=== PATIENT | male | born 1955 | race Caucasian/White ===

== ENCOUNTER 2017-01-23 18:40 | Inpatient (IN) | payer OTHER, MEDICARE ==
[~2017-01-23 18:40] MED LIST: ACIDOPHILUS1 EACH PO; ADULT LOW DOSE81 M1 PO; ADVAIR 5001 DISK W/D IH; ADVAIR 50028 BLISTE1 PO; ALBUTEROL17 GM INH; ALTACE10 MG; ALTACE10 MG PO; AMLODIPINE BESY10 MG PO; ASPIR 8181 MG PO; ATIVAN2 MG; BAYER81 MG; BUPROBAN150 MG PO; BUPROPION XL150 M1 PO; CELEXA40 MG; CELEXA40 MG PO; CIALIS20 MG; CIPRO500 M2 PO; CLONAZEPAM1 MG; CPAP; CRESTOR40 MG; CRESTOR40 MG PO; CRESTOR40 MG/TAB PO; CULTURELLE1 EAC1 PO; DESYREL150 MG; DORYX100 MG PO; EFFIENT10 MG/TAB PO; FLONASE ALLERG9.9 ML; FUROSEMIDE20 MG PO; GEODON80 MG; GUAIFENESIN ER600 MG PO; H PO; HYDROCHLOROTH12.5 M1 PO; HYDROCODONE/APA1 TA; LASIX20 M1 PO; LEVAQUIN750 M1 PO; LEVAQUIN750 MG PO; LOPRESSOR50 M1 PO; LOPRESSOR50 MG; LYRICA100 MG PO; LYRICA200 M1 PO; LYRICA50 MG; METOPROLOL TART25 MG PO; METOPROLOL TART50 MG PO; NEURONTIN600 MG; NITROGLYCERIN0.4 MG; NITROSTAT0.4 MG/TAB SL; NORCO 10-325 T1 EACH PO; NORCO 10/3251 TA1 PO; NORCO 5/325 TAB1 TAB PO; NORVASC10 M2 PO; NORVASC5 MG; NORVASC5 MG PO; OXYCODONE-APAP; PLAVIX75 MG; PREDNISONE10 M1 PO; PREDNISONE10 MG PO; PROAIR HFA8.5 GM IH; PROBIOTIC1 EAC6 PO; PYRIDIUM200 M2 PO; SPIRIVA18 MC1 IH; SPIRIVA18 MCG IH; TRAZODONE HCL150 MG PO; TRAZODONE HCL300 M1 PO; ZANTAC300 MG; ZITHROMAX250MG Z-PAK PO
[2017-01-23 21:12] LABS: EOS % 1.7 % (0-7); LYMPH % 50.6 % (20-45); LYMPH ABSOLUTE COUNT 0.9 tho/cmm (0.8-4.5); MCV (MEAN CELL VOLUME) 118.6 fl (82.0-96.0); MONO % 5.6 % (0-12); MONOCYTE ABSOLUTE COUNT 0.1 tho/cmm (0.0-1.2); NEUTROPHIL ABSOLUTE COUNT 0.8 tho/cmm (1.6-8.0); NEUTROPHIL-AUTOMATED 0.8 tho/cmm (1.6-8.0); NEUTROPHILS % 42.1 % (40-80); PLATELET COUNT 79 tho/cmm (150-450)
[2017-01-23 21:27] LABS: IRON 129 ug/dl (49-181); IRON BINDING CAPACITY 286 ug/dl (250-450)
[2017-01-23 21:30] LABS: ALB/GLOB RATIO 0.8 (0.8-2.0); ALBUMIN 3.4 g/dl (3.5-5.0); ALKALINE PHOSPHATASE 98 U/L (33-138); ALT/SGPT 22 U/L (12-78); ANION GAP 14 mmol/L (0-20); AST/SGOT 16 U/L (10-40); BILIRUBIN,TOTAL 0.4 mg/dl (0.0-1.5); BLOOD UREA NITROGEN 12 mg/dl (6-24); CALCIUM 8.7 mg/dl (8.5-10.5); CARBON DIOXIDE-VENOUS 24 mmol/L (22-32); CHLORIDE 109 mmol/l (96-110); GLUCOSE 124 mg/dL (70-110); MAGNESIUM 2.3 mg/dl (1.8-2.6); POTASSIUM 3.5 mmol/L (3.7-5.1); SODIUM 143 mmol/L (135-145); eGFR VALUE FOR BLACK 52 mL/Min
[2017-01-23 21:50] LABS: FERRITIN 478 ng/ml (22-388)
[2017-01-23 21:56] LABS: WHITE BLOOD COUNT 1.8 tho/cmm (4.0-10.0)
[2017-01-23 21:57] LABS: HCT-HEMATOCRIT 16.6 % (36.0-53.5); HGB-HEMOGLOBIN 5.6 gm/dl (13.5-17.0); MCHC MEAN CORPUSCULAR HGB CONC 33.7 % (32.0-36.0)
[2017-01-24 09:23] LABS: HGB-HEMOGLOBIN 7.5 gm/dl (13.5-17.0)
[2017-01-24 14:47] LABS: TSH-THYROID STIMULATING HORM. 2.18 uIU/ml (0.40-3.80)
[2017-01-25 14:57] LABS: HCT-HEMATOCRIT 20.1 % (36.0-53.5); HGB-HEMOGLOBIN 6.8 gm/dl (13.5-17.0); MCHC MEAN CORPUSCULAR HGB CONC 33.8 % (32.0-36.0); MCV (MEAN CELL VOLUME) 112.3 fl (82.0-96.0); MEAN PLATELET VOLUME 11.9 cmc (9.4-12.4); NEUTROPHIL-AUTOMATED 0.7 tho/cmm (1.6-8.0); PLATELET COUNT 73 tho/cmm (150-450); RED BLOOD COUNT 1.79 mil/cmm (4.40-5.70); RED CELL DISTRIBUTION WIDTH 20.6 % (12.4-16.4); WHITE BLOOD COUNT 2.3 tho/cmm (4.0-10.0)
[2017-01-25 15:09] LABS: ANION GAP 13 mmol/L (0-20); BLOOD UREA NITROGEN 15 mg/dl (6-24); CALCIUM 8.2 mg/dl (8.5-10.5); CARBON DIOXIDE-VENOUS 23 mmol/L (22-32); CHLORIDE 106 mmol/l (96-110); CREATININE 1.44 mg/dl (0.60-1.30); GLUCOSE 98 mg/dL (70-110); POTASSIUM 4.1 mmol/L (3.7-5.1); SODIUM 138 mmol/L (135-145); eGFR VALUE FOR BLACK 59 mL/Min
[2017-01-25 15:57] LABS: BAND % 1 % (0-20); EOSINOPHIL % 1 % (0-7); WBC MORPHOLOGY VARIANT LYMPHS
[2017-01-25 21:31] LABS: CREATININE 1.44 mg/dl (0.67-1.17)
[2017-01-26 05:08] LABS: EOS % 0.5 % (0-7); IMMATURE GRANULOCYTES ABSOLUTE 0.01 tho/cmm (0-0.03); IMMATURE GRANULOCYTES PERCENT 0.5 % (0-0.3); LYMPH % 45.7 % (20-45); LYMPH ABSOLUTE COUNT 0.9 tho/cmm (0.8-4.5); MEAN PLATELET VOLUME 12.1 cmc (9.4-12.4); MONOCYTE ABSOLUTE COUNT 0.1 tho/cmm (0.0-1.2); NEUTROPHILS % 49.3 % (40-80); PLATELET COUNT 68 tho/cmm (150-450); RED BLOOD COUNT 1.92 mil/cmm (4.40-5.70); RED CELL DISTRIBUTION WIDTH 23.6 % (12.4-16.4)
[2017-01-26 05:23] LABS: HCT-HEMATOCRIT 20.5 % (36.0-53.5); MCH (MEAN CORPUSCULAR HGB) 36.5 pg (28.0-32.0); MCHC MEAN CORPUSCULAR HGB CONC 34.1 % (32.0-36.0); MCV (MEAN CELL VOLUME) 106.8 fl (82.0-96.0)
[2017-01-26 05:29] LABS: ANION GAP 14 mmol/L (0-20); BLOOD UREA NITROGEN 13 mg/dl (6-24); CALCIUM 8.1 mg/dl (8.5-10.5); CARBON DIOXIDE-VENOUS 22 mmol/L (22-32); CHLORIDE 105 mmol/l (96-110); CREATININE 1.42 mg/dl (0.60-1.30); GLUCOSE 112 mg/dL (70-110); POTASSIUM 3.6 mmol/L (3.7-5.1); SODIUM 137 mmol/L (135-145); eGFR VALUE FOR BLACK 60 mL/Min
[2017-01-26 06:13] LABS: WBC MORPHOLOGY VARIANT LYMPHS
--- NOTE | 2017-01-26 10:50 | NUR ---
PT RETURNS TO ROOM FROM IR S/P BONE MARROW BX, COLONOSCOPY & EGD WITH ANESTHESIA. PT AWAKE, APPROPRIATE BUT SATS 75% ON RA. LUNG SOUNDS DIM T/O BUT THIS IS UNCHANGED FROM ASSESSMENT AT 0730. APPLIED O2 PER NC AT 4L AND ATTEMPTED JAW THRUST BUT NO CHANGE IN O2 SATS. DIABETES NURSE CALLED AT 1053. RT INITIATES CPAP WITH 10L O2 BLED INTO LINE AND SATS IMPROVE TO >90%. PT DOSES OFF BUT WAKES READILY TO VOICE. ABG'S DRAWN, CXR ORDERED. RESP TX PROVIDED AND PT SITS UP IN BED TO WATCH TV, REQUESTS CPAP BE REMOVED. PT PLACED ON O2 PER NC AT 6L AND SATS 100%. WILL MONITOR AND CONT TO WEAN O2 ABLE.
[2017-01-26 11:25] LABS: ABG CO2 ARTERIAL 22 mmol/L (21-27); ARTERIAL BLD GAS O2 SATURATION 94 % (95-98); ARTERIAL BLOOD GAS PCO2 31 mmHg (32-45); ARTERIAL PO2 68 mmHg (70-100); BICARBONATE 21 mmol/L (21-28); BLOOD GAS BASE EXCESS -2 mM/L (-/+3); PH 7.45 Units (7.35-7.45)
[2017-01-26 17:50] LABS: ABG CO2 ARTERIAL 23 mmol/L (21-27); ARTERIAL BLD GAS O2 SATURATION 85 % (95-98); ARTERIAL BLOOD GAS PCO2 28 mmHg (32-45); BICARBONATE 22 mmol/L (21-28); BLOOD GAS BASE EXCESS 0 mM/L (-/+3)
[2017-01-26 17:51] LABS: ARTERIAL PO2 55 mmHg (70-100)
[2017-01-26 17:57] LABS: EOS % 0.6 % (0-7); HGB-HEMOGLOBIN 6.8 gm/dl (13.5-17.0); IMMATURE GRANULOCYTES ABSOLUTE 0.01 tho/cmm (0-0.03); IMMATURE GRANULOCYTES PERCENT 0.6 % (0-0.3); LYMPH % 52.8 % (20-45); LYMPH ABSOLUTE COUNT 0.9 tho/cmm (0.8-4.5); MCH (MEAN CORPUSCULAR HGB) 36.8 pg (28.0-32.0); MCV (MEAN CELL VOLUME) 107.6 fl (82.0-96.0); MEAN PLATELET VOLUME 12.3 cmc (9.4-12.4); MONO % 3.9 % (0-12); MONOCYTE ABSOLUTE COUNT 0.1 tho/cmm (0.0-1.2); NEUTROPHIL ABSOLUTE COUNT 0.8 tho/cmm (1.6-8.0); NEUTROPHIL-AUTOMATED 0.8 tho/cmm (1.6-8.0); NEUTROPHILS % 42.1 % (40-80); PLATELET COUNT 68 tho/cmm (150-450); RED BLOOD COUNT 1.85 mil/cmm (4.40-5.70); RED CELL DISTRIBUTION WIDTH 23.2 % (12.4-16.4)
[2017-01-26 18:05] LABS: HCT-HEMATOCRIT 19.9 % (36.0-53.5); MCHC MEAN CORPUSCULAR HGB CONC 34.2 % (32.0-36.0)
[2017-01-26 18:09] LABS: WHITE BLOOD COUNT 1.8 tho/cmm (4.0-10.0)
[2017-01-26 18:37] LABS: PROCALCITONIN 0.13 ng/ml (0.05-0.09)
[2017-01-26 18:43] LABS: WBC MORPHOLOGY VARIANT LYMPHS
[2017-01-27 06:40] LABS: ABG CO2 ARTERIAL 25 mmol/L (21-27); ARTERIAL BLD GAS O2 SATURATION 92 % (95-98); ARTERIAL BLOOD GAS PCO2 35 mmHg (32-45); ARTERIAL PO2 64 mmHg (70-100); BICARBONATE 24 mmol/L (21-28); BLOOD GAS BASE EXCESS 0 mM/L (-/+3); PH 7.45 Units (7.35-7.45)
[2017-01-27 08:32] LABS: HGB-HEMOGLOBIN 7.5 gm/dl (13.5-17.0); MCH (MEAN CORPUSCULAR HGB) 35.4 pg (28.0-32.0); MCV (MEAN CELL VOLUME) 102.8 fl (82.0-96.0); MEAN PLATELET VOLUME 12.5 cmc (9.4-12.4); NEUTROPHIL-AUTOMATED 1.1 tho/cmm (1.6-8.0); PLATELET COUNT 74 tho/cmm (150-450); RED BLOOD COUNT 2.12 mil/cmm (4.40-5.70); RED CELL DISTRIBUTION WIDTH 24.2 % (12.4-16.4); WHITE BLOOD COUNT 2.6 tho/cmm (4.0-10.0)
[2017-01-27 08:42] LABS: ANION GAP 13 mmol/L (0-20); BLOOD UREA NITROGEN 14 mg/dl (6-24); CARBON DIOXIDE-VENOUS 24 mmol/L (22-32); CHLORIDE 104 mmol/l (96-110); CREATININE 1.35 mg/dl (0.60-1.30); GLUCOSE 113 mg/dL (70-110); POTASSIUM 3.8 mmol/L (3.7-5.1); SODIUM 137 mmol/L (135-145); eGFR VALUE FOR BLACK 64 mL/Min
[2017-01-27 09:00] LABS: HCT-HEMATOCRIT 21.8 % (36.0-53.5); IMMATURE GRANULOCYTES ABSOLUTE 0.33 tho/cmm (0-0.03); IMMATURE GRANULOCYTES PERCENT 12.9 % (0-0.3); LYMPH ABSOLUTE COUNT 1.1 tho/cmm (0.8-4.5); MCHC MEAN CORPUSCULAR HGB CONC 34.4 % (32.0-36.0); MONO % 3.5 % (0-12); MONOCYTE ABSOLUTE COUNT 0.1 tho/cmm (0.0-1.2); NEUTROPHIL ABSOLUTE COUNT 1.1 tho/cmm (1.6-8.0); NEUTROPHILS % 42.6 % (40-80)
[2017-01-27 14:12] LABS: INR 1.3 INR (0.9-1.1); PROTHROMBIN TIME 15.5 SECONDS (9.0-13.6)
[2017-01-27 14:32] LABS: ABG CO2 ARTERIAL 22 mmol/L (21-27); ARTERIAL BLD GAS O2 SATURATION 89 % (95-98); ARTERIAL PO2 59 mmHg (70-100); BICARBONATE 21 mmol/L (21-28); BLOOD GAS BASE EXCESS -1 mM/L (-/+3); PH 7.52 Units (7.35-7.45)
[2017-01-27 14:33] LABS: ARTERIAL BLOOD GAS PCO2 26 mmHg (32-45)
[2017-01-27 15:03] LABS: HGB-HEMOGLOBIN 7.7 gm/dl (13.5-17.0); MCH (MEAN CORPUSCULAR HGB) 35.2 pg (28.0-32.0); MCV (MEAN CELL VOLUME) 102.3 fl (82.0-96.0); MEAN PLATELET VOLUME 11.8 cmc (9.4-12.4); NEUTROPHIL-AUTOMATED 2.1 tho/cmm (1.6-8.0); PLATELET COUNT 73 tho/cmm (150-450); RED BLOOD COUNT 2.19 mil/cmm (4.40-5.70); RED CELL DISTRIBUTION WIDTH 24.2 % (12.4-16.4); WHITE BLOOD COUNT 3.5 tho/cmm (4.0-10.0)
[2017-01-27 15:05] LABS: HCT-HEMATOCRIT 22.4 % (36.0-53.5); MCHC MEAN CORPUSCULAR HGB CONC 34.4 % (32.0-36.0)
[2017-01-27 15:19] LABS: ALB/GLOB RATIO 0.7 (0.8-2.0); ALBUMIN 3.4 g/dl (3.5-5.0); ALKALINE PHOSPHATASE 88 U/L (33-138); ALT/SGPT 23 U/L (12-78); ANION GAP 15 mmol/L (0-20); AST/SGOT 21 U/L (10-40); BILIRUBIN,TOTAL 1.2 mg/dl (0.0-1.5); BLOOD UREA NITROGEN 16 mg/dl (6-24); CALCIUM 8.2 mg/dl (8.5-10.5); CARBON DIOXIDE-VENOUS 22 mmol/L (22-32); CHLORIDE 104 mmol/l (96-110); CREATININE 1.54 mg/dl (0.60-1.30); GLUCOSE 140 mg/dL (70-110); POTASSIUM 3.9 mmol/L (3.7-5.1); SODIUM 137 mmol/L (135-145); eGFR VALUE FOR BLACK 55 mL/Min
[2017-01-27 15:36] LABS: BAND % 12 % (0-20); BAND ABSOLUTE COUNT 0.4 tho/cmm (0-2.0)
[2017-01-27 17:52] LABS: ABG CO2 ARTERIAL 23 mmol/L (21-27); ARTERIAL BLD GAS O2 SATURATION 96 % (95-98); ARTERIAL BLOOD GAS PCO2 37 mmHg (32-45); ARTERIAL PO2 93 mmHg (70-100); BICARBONATE 22 mmol/L (21-28); BLOOD GAS BASE EXCESS -2 mM/L (-/+3); PH 7.39 Units (7.35-7.45)
[2017-01-27 19:02] LABS: INR 1.4 INR (0.9-1.1); PROTHROMBIN TIME 16.7 SECONDS (9.0-13.6)
[2017-01-27 19:28] LABS: PROCALCITONIN 1.83 ng/ml (0.05-0.09)
[2017-01-27 23:21] LABS: URINE BILIRUBIN NEGATIVE (NEG); URINE BLOOD SMALL (NEG); URINE GLUCOSE (UA) NEGATIVE (NEG); URINE KETONE SMALL (NEG); URINE LEUKOCYTE ESTERASE POSITIVE (NEG); URINE NITRITE NEGATIVE (NEG); URINE PH 6.5 (5.0-8.0); URINE PROTEIN NEGATIVE (NEG)
[2017-01-27 23:25] LABS: URINE APPEARANCE HAZY; URINE COLOR YELLOW
[2017-01-27 23:30] LABS: URINE BACTERIA 1+; URINE EPITHELIAL CELLS RARE /[HPF] (0-10); URINE WBC 0-3 /[HPF] (0-5)
[2017-01-28 04:48] LABS: MEAN PLATELET VOLUME 11.5 cmc (9.4-12.4); NEUTROPHIL-AUTOMATED 1.5 tho/cmm (1.6-8.0); PLATELET COUNT 64 tho/cmm (150-450); RED BLOOD COUNT 1.73 mil/cmm (4.40-5.70); RED CELL DISTRIBUTION WIDTH 23.7 % (12.4-16.4); WHITE BLOOD COUNT 2.4 tho/cmm (4.0-10.0)
[2017-01-28 04:50] LABS: IMMATURE GRANULOCYTES ABSOLUTE 0.32 tho/cmm (0-0.03); IMMATURE GRANULOCYTES PERCENT 13.2 % (0-0.3); LYMPH % 22.2 % (20-45); LYMPH ABSOLUTE COUNT 0.5 tho/cmm (0.8-4.5); MONO % 2.1 % (0-12); MONOCYTE ABSOLUTE COUNT 0.1 tho/cmm (0.0-1.2); NEUTROPHIL ABSOLUTE COUNT 1.5 tho/cmm (1.6-8.0); NEUTROPHILS % 62.5 % (40-80)
[2017-01-28 04:51] LABS: MCH (MEAN CORPUSCULAR HGB) 34.6 pg (28.0-32.0); MCHC MEAN CORPUSCULAR HGB CONC 33.3 % (32.0-36.0)
[2017-01-28 04:56] LABS: ANION GAP 12 mmol/L (0-20); BLOOD UREA NITROGEN 13 mg/dl (6-24); CALCIUM 7.2 mg/dl (8.5-10.5); CARBON DIOXIDE-VENOUS 22 mmol/L (22-32); CHLORIDE 108 mmol/l (96-110); GLUCOSE 194 mg/dL (70-110); POTASSIUM 3.3 mmol/L (3.7-5.1); SODIUM 139 mmol/L (135-145); eGFR VALUE FOR BLACK 74 mL/Min
[2017-01-28 16:25] LABS: BAL APPEARANCE CLEAR (CLEAR)
[2017-01-28 16:26] LABS: BAL COLOR PINK (COLORLESS)
[2017-01-28 17:07] LABS: BAL LYMPHOCYTES 6 %; BAL NEUTROPHILS 67 %
[2017-01-28 23:31] LABS: HGB-HEMOGLOBIN 8.5 gm/dl (13.5-17.0)
[2017-01-29 04:26] LABS: HGB-HEMOGLOBIN 8.6 gm/dl (13.5-17.0); PLATELET COUNT 89 tho/cmm (150-450); RED CELL DISTRIBUTION WIDTH 24.7 % (12.4-16.4)
[2017-01-29 04:42] LABS: ALB/GLOB RATIO 0.6 (0.8-2.0); ALBUMIN 2.5 g/dl (3.5-5.0); ALKALINE PHOSPHATASE 57 U/L (33-138); ALT/SGPT 16 U/L (12-78); ANION GAP 12 mmol/L (0-20); AST/SGOT 14 U/L (10-40); BILIRUBIN,TOTAL 0.9 mg/dl (0.0-1.5); BLOOD UREA NITROGEN 9 mg/dl (6-24); CALCIUM 7.9 mg/dl (8.5-10.5); CARBON DIOXIDE-VENOUS 22 mmol/L (22-32); CHLORIDE 110 mmol/l (96-110); CREATININE 1.04 mg/dl (0.60-1.30); GLUCOSE 141 mg/dL (70-110); POTASSIUM 3.6 mmol/L (3.7-5.1); SODIUM 140 mmol/L (135-145); eGFR VALUE FOR BLACK 88 mL/Min
[2017-01-29 04:47] LABS: HCT-HEMATOCRIT 25.4 % (36.0-53.5); IMMATURE GRANULOCYTES ABSOLUTE 0.45 tho/cmm (0-0.03); IMMATURE GRANULOCYTES PERCENT 10.8 % (0-0.3); LYMPH ABSOLUTE COUNT 0.5 tho/cmm (0.8-4.5); MCH (MEAN CORPUSCULAR HGB) 32.5 pg (28.0-32.0); MCHC MEAN CORPUSCULAR HGB CONC 33.9 % (32.0-36.0); MCV (MEAN CELL VOLUME) 96.2 fl (82.0-96.0); MONO % 4.8 % (0-12); MONOCYTE ABSOLUTE COUNT 0.2 tho/cmm (0.0-1.2); NEUTROPHILS % 72.4 % (40-80); RED BLOOD COUNT 2.64 mil/cmm (4.40-5.70); WHITE BLOOD COUNT 4.2 tho/cmm (4.0-10.0)
[2017-01-29 05:02] LABS: ABG CO2 ARTERIAL 21 mmol/L (21-27); ARTERIAL BLD GAS O2 SATURATION 88 % (95-98); BICARBONATE 20 mmol/L (21-28); BLOOD GAS BASE EXCESS -2 mM/L (-/+3); PH 7.47 Units (7.35-7.45)
[2017-01-29 05:07] LABS: ARTERIAL BLOOD GAS PCO2 29 mmHg (32-45); ARTERIAL PO2 54 mmHg (70-100)
[2017-01-29 12:47] LABS: ARTERIAL BLOOD GAS PCO2 11 mmHg (32-45); PH 7.74 Units (7.35-7.45)
[2017-01-29 12:48] LABS: ABG CO2 ARTERIAL 15 mmol/L (21-27); ARTERIAL BLD GAS O2 SATURATION 99 % (95-98); ARTERIAL PO2 89 mmHg (70-100); BICARBONATE 15 mmol/L (21-28); BLOOD GAS BASE EXCESS -4 mM/L (-/+3)
[2017-01-29 14:46] LABS: ARTERIAL BLD GAS O2 SATURATION 94 % (95-98); BLOOD GAS BASE EXCESS -1 mM/L (-/+3); PH 7.52 Units (7.35-7.45)
[2017-01-29 14:47] LABS: ABG CO2 ARTERIAL 22 mmol/L (21-27); ARTERIAL BLOOD GAS PCO2 26 mmHg (32-45); ARTERIAL PO2 60 mmHg (70-100); BICARBONATE 21 mmol/L (21-28)
== END 2017-01-30 03:08 | disposition expired | DRG 208 ==
LOC: PCUB 18:40 → CCU 01-27 15:30
PROVIDERS: Hospitalist; Internal Medicine Cardiovascular Disease; Internal Medicine Medical Oncology; Internal Medicine Pulmonary Disease; Nurse Practitioner; Registered Nurse; ADMIT Family Medicine
PROC: 5A09357 Assistance with Respiratory Ventilation, Less than 24 Consecutive Hours, Continuous Positive Airway Pressure (ICD-10-PCS; principal; 2017-01-23)
PROC: 30233N1 Transfusion of Nonautologous Red Blood Cells into Peripheral Vein, Percutaneous Approach (ICD-10-PCS; 2017-01-24)
PROC: 0DJD8ZZ Inspection of Lower Intestinal Tract, Via Natural or Artificial Opening Endoscopic (ICD-10-PCS; 2017-01-26)
PROC: 0DJ08ZZ Inspection of Upper Intestinal Tract, Via Natural or Artificial Opening Endoscopic (ICD-10-PCS; 2017-01-26)
PROC: 07DR3ZX Extraction of Iliac Bone Marrow, Percutaneous Approach, Diagnostic (ICD-10-PCS; 2017-01-26)
PROC: 5A1945Z Respiratory Ventilation, 24-96 Consecutive Hours (ICD-10-PCS; 2017-01-27)
PROC: 0BH17EZ Insertion of Endotracheal Airway into Trachea, Via Natural or Artificial Opening (ICD-10-PCS; 2017-01-27)
PROC: 0BB68ZX Excision of Right Lower Lobe Bronchus, Via Natural or Artificial Opening Endoscopic, Diagnostic (ICD-10-PCS; 2017-01-28)
DX: J96.01 Acute respiratory failure with hypoxia (principal); R65.20 Severe sepsis without septic shock; A41.9 Sepsis, unspecified organism; I50.33 Acute on chronic diastolic (congestive) heart failure; G93.40 Encephalopathy, unspecified; J18.9 Pneumonia, unspecified organism; N17.9 Acute kidney failure, unspecified; N18.3 Chronic kidney disease, stage 3 (moderate); D61.818 Other pancytopenia; I13.0 Hypertensive heart and chronic kidney disease with heart failure and stage 1 through stage 4 chronic kidney disease, or unspecified chronic kidney disease; J44.0 Chronic obstructive pulmonary disease with (acute) lower respiratory infection; K62.5 Hemorrhage of anus and rectum; Z91.81 History of falling; M79.605 Pain in left leg; I25.10 Atherosclerotic heart disease of native coronary artery without angina pectoris; Z95.1 Presence of aortocoronary bypass graft; E78.5 Hyperlipidemia, unspecified; M19.90 Unspecified osteoarthritis, unspecified site; G89.29 Other chronic pain; G47.33 Obstructive sleep apnea (adult) (pediatric); Z68.37 Body mass index [BMI] 37.0-37.9, adult; E66.01 Morbid (severe) obesity due to excess calories; R53.1 Weakness; Z79.82 Long term (current) use of aspirin; R63.4 Abnormal weight loss; I73.9 Peripheral vascular disease, unspecified; F17.210 Nicotine dependence, cigarettes, uncomplicated; Z66 Do not resuscitate; E87.6 Hypokalemia; M16.0 Bilateral primary osteoarthritis of hip; K57.30 Diverticulosis of large intestine without perforation or abscess without bleeding
CPT/HCPCS: C1751; C8929; C9113; G0364; J0360; J1630; J1815; J1940; J2060; J2250; J2270; J2405; J2543; J2704; J2930; J3010; J3370; J3411; J3480; J7030; J7040; J7050; J7999; P9016; P9045